=== PATIENT | female | born 2000 | race Caucasian/White ===

== ENCOUNTER 2023-01-05 21:42 | Emergency (ER) | payer OTHER ==
[~2023-01-05] VITALS: Ht 152.4 cm; Wt 50.0 kg
[2023-01-05 21:56] VITALS: BP 109/61
[2023-01-05] MEDS ORDERED: LIDOCAINE 2% VISCOUS 15 ML SOLUTION UDCUP PO ONE (23:45)
== END 2023-01-06 00:14 | disposition home or self-care (01) ==
LOC: EMS 21:45
DX: K14.8 Other diseases of tongue (principal)
CPT/HCPCS: 99284; Z7502; Z7610